=== PATIENT | female | born 1985 | race Caucasian/White ===

== ENCOUNTER 2017-10-05 20:26 | Emergency (ER) | payer SELFPAY ==
[2017-10-05] MEDS ORDERED: cefTRIAXone 2 GM in Sodium Chloride 0.9% 50 ML IV ONE (21:45)
[2017-10-05] MEDS ORDERED: methylPREDNISolone Sodium Succinate 125 MG/2 ML SDV IVPUSH ONE (21:45)
[2017-10-05] MEDS ORDERED: Codeine/guaiFENesin 100mg-10 MG/5 ML Syrup 10 ML Cup PO ONE (21:45)
[2017-10-05] MEDS ORDERED: Albuterol/Ipratropium 3.0-0.5 MG/3 ML Neb Soln NEB ONE (21:45)
--- NOTE | 2017-10-05 21:59 | EDM.PDOC ---
ED HPI GENERAL MEDICAL PROBLEM - General Chief Complaint: Respiratory Problem Stated Complaint: COUGH/SOB Time Seen by Provider: 10/05/17 20:29 Source of Information: Reports: Patient History Limitations: Reports: No Limitations - History of Present Illness INITIAL COMMENTS - FREE TEXT/NARRATIVE: shortness of breath; this is a 31 year old female, presents to ER with Mom, reports has been sick with a cold for the past week, then this morning woke up and couldn't breath. Has been coughing and wheezing all day. Usually smoke one pack per day of cigarettes, had to decrease due to wheezing. last used inhaler about 2 hours ago. hx of asthma smoking for 15 years, one pack or more per day. denies or breast feeding. 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 Treatments (albuterol neb) Denies Pain Score (Numeric/FACES): 0 - Related Data Allergies Allergy/AdvReac Type Severity Reaction Status Date / Time sulfamethoxazole Allergy Hives Verified 10/05/17 21:28 [From Bactrim] trimethoprim [From Bactrim] Allergy Hives Verified 10/05/17 21:28 Home Meds: Home Meds Albuterol Sulfate [Proair Hfa] 8.5 gm IH QID PRN 10/05/17 [History] Omeprazole 20 mg PO DAILY 10/05/17 [History] Past Medical History Respiratory History: Reports: Asthma Social & Family History - Tobacco Use Smoking Status *Q: Current Every Day Smoker (one pack per day) Tobacco Use Within Last Twelve Months: Cigarettes ED ROS GENERAL - Review of Systems Review Of Systems: See Below Constitutional: Reports: Fatigue, Other (shortness of breath) HEENT: Reports: Sinus Problem (sinus congestion and cough for one week) Respiratory: Reports: Shortness of Breath, Wheezing, Pleuritic Chest Pain, Cough , Sputum Cardiovascular: Reports: No Symptoms Endocrine: Reports: No Symptoms GI/Abdominal: Reports: No Symptoms Musculoskeletal: Reports: Back Pain (chronic back pain) Skin: Reports: No Symptoms Neurological: Reports: Numbness (left lower leg) Psychiatric: Reports: No Symptoms Hematologic/Lymphatic: Reports: No Symptoms Immunologic: Reports: No Symptoms ED EXAM, GENERAL - Physical Exam Exam: See Below Exam Limited By: Respiratory Distress General Appearance: Alert, WD/WN, Anxious, Mild Distress, Obese Eye Exam: Bilateral Eye: Conjunctival Injection (from crying) Ears: Normal External Exam, Normal Canal, Hearing Grossly Normal, Normal TMs Ear Exam: Bilateral Ear: Auricle Normal, Canal Normal, TM normal Nose: Nasal Drainage Throat/Mouth: Normal Inspection, Normal Lips, Normal Teeth, Normal Gums, Normal Oropharynx, Normal Voice, No Airway Compromise Head: Atraumatic, Normocephalic Neck: Normal Inspection, Supple, Non-Tender, Full Range of Motion Respiratory/Chest: Respiratory Distress (frequent cough, audible wheezing. diffuse), Decreased Breath Sounds, Wheezing Cardiovascular: Regular Rate, Rhythm, No Murmur GI/Abdominal: Soft, Non-Tender Back Exam: Normal Inspection Extremities: Normal Inspection, Normal Range of Motion, Non-Tender Neurological: Alert, Oriented, CN II-XII Intact, Normal Cognition, Normal Gait, No Motor/Sensory Deficits Psychiatric: Tearful Skin Exam: Warm, Dry, Intact, Normal Color, No Rash Lymphatic: No Adenopathy Course - Vital Signs Last Recorded V/S: Last Vital Signs Temp 36.6 C 10/05/17 21:33 Pulse 107 H 10/05/17 21:33 Resp 15 10/05/17 21:33 BP 157/75 H 10/05/17 21:33 Pulse Ox 94 L 10/05/17 21:33 - Orders/Labs/Meds Orders: Active Orders 24 hr Category Date Time Status RT Aerosol Therapy [RC] ASDIRECTED Care 10/05/17 21:45 Active Chest 2V [CR] Urgent Exams 10/05/17 21:46 Taken CULTURE STREP A CONFIRMATION [RM] Stat Lab 10/05/17 21:33 Results STREP SCRN A RAPID W CULT CONF [RM] Stat Lab 10/05/17 21:33 Ordered DME for Discharge [COMM] Urgent Oth 10/05/17 22:52 Ordered Labs: Laboratory Tests 10/05/17 10/05/17 Range/Units 22:01 22:01 WBC 22.2 H (4.5-11.0) K/uL RBC 4.60 (3.30-5.50) M/uL Hgb 13.3 (12.0-15.0) g/dL Hct 40.5 (36.0-48.0) % MCV 88 (80-98) fL MCH 29 (27-31) pg MCHC 33 (32-36) % Plt Count 344 (150-400) K/uL Neut % (Auto) 80 H (36-66) % Lymph % (Auto) 12 L (24-44) % [place] % (Auto) 6 (2-6) % Eos % (Auto) 2 (2-4) % Baso % (Auto) 0 (0-1) % Sodium 142 (140-148) mmol/L Potassium 3.3 L (3.6-5.2) mmol/L Chloride 104 (100-108) mmol/L Carbon Dioxide 28 (21-32) mmol/L Anion Gap 13.3 (5.0-14.0) mmol/L BUN 12 (7-18) mg/dL Creatinine 1.0 (0.6-1.0) mg/dL Est Cr Clr Drug Dosing 92.78 mL/min Estimated GFR (MDRD) > 60 (>60) Glucose 82 (74-106) mg/dL Calcium 8.3 L (8.5-10.1) mg/dL Meds: Medications Discontinued Medications Generic Name Dose Route Start Last Admin Trade Name Freq PRN Reason Stop Dose Admin Albuterol/Ipratropium 3 ml 10/05/17 21:45 10/05/17 22:13 Duoneb 3.0-0.5 Mg/3 Ml NEB 10/05/17 21:46 3 ml ONETIME ONE Administration Guaifenesin/Codeine Phosphate 10 ml 10/05/17 21:45 10/05/17 22:29 Robitussin Ac PO 10/05/17 21:46 10 ml ONETIME ONE Administration Ceftriaxone Sodium 2 gm/ 50 mls @ 100 mls/hr 10/05/17 21:45 10/05/17 22:31 Sodium Chloride IV 10/05/17 22:14 100 mls/hr ONETIME ONE Administration Methylprednisolone Sodium Succinate 125 mg 10/05/17 21:45 10/05/17 22:38 Solu-Medrol IVPUSH 10/05/17 21:46 125 mg ONETIME ONE Administration - Re-Assessments/Exams Free Text/Narrative Re-Assessment/Exam: 10/05/17 22:05 order labs to rule out bacterial component; cbc, bmp, rst meds; neb Duo-neb, IV Rocephin 2 gram, Solu-medrol 125mg , place on Oxygen 3 l per [facility]; chest pa/lat will await results. and response to medication. 10/05/17 22:43 modest improvement with nebulizer treatment. chest; wheezing decreased, cough persists WBC22.2 discussed admission to hospital over night, Patient declines admission due to no insurance and is feeling better after neb treatment. Departure - Departure Time of Disposition: 22:57 Disposition: Home, Self-Care 01 Condition: Good Clinical Impression: Tobacco dependence due to cigarettes Exacerbation of asthma Qualifiers: Asthma severity: moderate - Discharge Information Instructions: Coping with Quitting Smoking, Smoking Tobacco Information, Asthma Attack Prevention, Adult Referrals: PCP,None [Primary Care Provider] - Forms: ED Department Discharge Care Plan Goals: Asthma -Albuterol neb treatments every 4 hours as needed for wheezing -medrol dose pack as directed -Zithromax 500mg po today, then 250mg daily x 4 days -follow up with Primary Care Provider for recheck in 1 to 2 days Return to ER for any increased shortness of breath, fever, chills, nausea, vomiting or not improved. Tobacco Use -advise to quit or reduce amount of smoking. -follow up with [place] [facility] Tobacco program. - Problem List & Annotations (1) Tobacco dependence due to cigarettes SNOMED Code(s): 06469911132221966 Code(s): F17.210 - NICOTINE DEPENDENCE, CIGARETTES, UNCOMPLICATED Status: Acute Priority: High Current Visit: Yes (2) Exacerbation of asthma SNOMED Code(s): 187746008 Code(s): J45.901 - UNSPECIFIED ASTHMA WITH (ACUTE) EXACERBATION Status: Acute Priority: High Current Visit: Yes Qualifiers: Asthma severity: moderate - Problem List Review Problem List Initiated/Reviewed/Updated: Yes - My Orders Last 24 Hours: My Active Orders 10/05/17 21:33 CULTURE STREP A CONFIRMATION [RM] Stat STREP SCRN A RAPID W CULT CONF [RM] Stat 10/05/17 21:45 RT Aerosol Therapy [RC] ASDIRECTED 10/05/17 21:46 Chest 2V [CR] Urgent 10/05/17 22:52 DME for Discharge [COMM] Urgent - Assessment/Plan Last 24 Hours: My Active Orders 10/05/17 21:33 CULTURE STREP A CONFIRMATION [RM] Stat STREP SCRN A RAPID W CULT CONF [RM] Stat 10/05/17 21:45 RT Aerosol Therapy [RC] ASDIRECTED 10/05/17 21:46 Chest 2V [CR] Urgent 10/05/17 22:52 DME for Discharge [COMM] Urgent Plan: Asthma -Albuterol neb treatments every 4 hours as needed for wheezing -medrol dose pack as directed -Zithromax 500mg po today, then 250mg daily x 4 days -follow up with Primary Care Provider for recheck in 1 to 2 days Return to ER for any increased shortness of breath, fever, chills, nausea, vomiting or not improved. Tobacco Use -advise to quit or reduce amount of smoking. -follow up with [place] [facility] Tobacco program.
--- NOTE | 2017-10-06 09:37 | CR ---
Chest 2V FINDINGS: The heart and vascular structures are normal in appearance. No infiltrates or effusions are demonstrated. The skeletal structures are unremarkable. IMPRESSION: Negative exam.
== END 2017-10-05 23:20 | disposition home or self-care (01) ==
LOC: JP.ED 20:26
DX: J45.901 Unspecified asthma with (acute) exacerbation (principal); F17.210 Nicotine dependence, cigarettes, uncomplicated; Z88.2 Allergy status to sulfonamides
CPT/HCPCS: 36415; 71046; 71046-26; 80048; 85025; 87081; 87430; 94640; 96365; 96375; 99285-25; A9270-GY; J0696; J2930; J7050; J7620